=== PATIENT | male | born 1990 | race Caucasian/White ===

== ENCOUNTER 2019-08-04 21:42 | Emergency (ER) | payer BC ==
[~2019-08-04] VITALS: Ht 185.4 cm; Wt 104.3 kg
[2019-08-04] MEDS ORDERED: NORCO 5-325 TA1 EAC1 PO (23:31)
[2019-08-04 23:49] VITALS: BP 133/70
== END 2019-08-04 23:55 | disposition home or self-care (01) ==
LOC: ER 21:42
DX: S61.011A Laceration without foreign body of right thumb without damage to nail, initial encounter (principal); Z89.011 Acquired absence of right thumb; W26.8XXA Contact with other sharp object(s), not elsewhere classified, initial encounter; Y92.89 Other specified places as the place of occurrence of the external cause; Y93.89 Activity, other specified; Y99.8 Other external cause status